=== PATIENT | female | born 1955 | race Caucasian/White ===

== ENCOUNTER → 2016-11-22 | Outpatient (CLI) | payer BC ==
--- NOTE | 2016-11-23 08:54 | PCVCIMAG ---
APPROVED REPORT Exam: Stress Echocardiogram Indication: CAD. Stent. TN Patient Location: Echo lab Stress Nurse: Leticia Singh RN Status: routine HR: 90 bpm Procedure The patient underwent an Exercise Stress Test using the Freddie Protocol. Blood pressure, heart rate, and EKG were monitored. An Echocardiogram was performed by wheel alignment technician in four stages in quad fashion. At peak stress, four selected images were obtained and placed side by side with resting images for comparison. Stress Test Details Stress Test: Exercise stress was performed using a manual protocol. HR Resting HR: 90 bpmMax Heart Rate (APMHR): 161 bpm Max HR Achieved: 148 bpmTarget HR (85% APMHR): 136 bpm % of APMHR: 91 HR response to stress: Normal HR response to stress BP Resting BP: 150/80 mmHg Max BP: 200/88 mmHg ECG Resting ECG: Sinus Rhythm Stress ECG: Sinus Rhythm ST Change: Normal Maximum ST Deviation: 0.5 mm Clinical Reason for Termination: Maximal effort, dyspnea Stress Symptoms: Dyspnea Exercise duration: 5 min sec Exercise capacity: 7.00 METs Overall Exercise Capacity for Age: Poor Angina Score: None Stress ECG Conclusion Clinical: Possibly iischemic. Significant dyspnea at low levels of activity ECG: Non-ischemic Barron Treadmill Score is 2.5 which is Moderate risk. Pre-Stress Echo The resting Echocardiogram showed abnormal left ventricular contractility with an estimated Ejection Fraction of about 45-50%. The resting Echocardiogram demonstrated wall motion abnormality in the basal inferior wall. Post-Stress Echo The stress Echocardiogram showed abnormal left ventricular contractility with an estimated Ejection Fraction of about 45-50%. The stress Echocardiogram demonstrated wall motion abnormality in the basal inferior wall. Small fixed inferobasal wall motion abnormality. Hypokinsis involving anteroapex Conclusion Clinical Response: Non-ischemic Exercise Capacity: Below Average Stress ECG Response: Equivocal Stress Echo Images: Ischemic No prior study available for comparison.
== END | disposition home or self-care (01) ==
LOC: PCVCIMAG 13:33
PROVIDERS: ATTEND Internal Medicine
DX: I25.10 Atherosclerotic heart disease of native coronary artery without angina pectoris (principal); I25.2 Old myocardial infarction; Z95.5 Presence of coronary angioplasty implant and graft
CPT/HCPCS: 93325; 93351

== ENCOUNTER → 2019-02-20 | Outpatient (CLI) | payer BC ==
[~2019-02-20] MED LIST: REGADENOSON 0.4 MG/5 ML DISP.SYRIN. IV ONE
--- NOTE | 2019-02-20 14:06 | PCVCIMAG ---
APPROVED REPORT Imaging Protocol: Rest Tc-99m/Stress Tc-99m 1 day Study performed: 02/20/2019 09:26:06 Indication: CAD, Ischemic Cardiomyopathy Patient Location: Out-Patient Stress Nurse: Arlene Yeager RN, Leticia Singh RN MI Tech:Thomas Rankin NMLUIS CARLOSB Ht: 5 ft 8 in Wt: 191 lbs BSA: 2.00 m2 HR: 69 bpm BP: 145/73 mmHg BMI: 29.0 Rhythm: Normal Sinus Rhythm, Septal Infarct Medical History Medical History: Age, Hypelipidemia, HTN, CAD, Smoker Medications: Norvasc, ASA, Zetia, Lisinopril, Metoprolol Allergies: No known drug allergies Previous Cardiac Procedures: PCI Pretest Chest Pain Characteristics: No chest pain Exercise History: Physically active Meds Held (24 hrs): Metoprolol Resting Data Rest SPECT myocardial perfusion imaging was performed in supine position 45 minutes following the intravenous injection of 11.2 mCi of Tc-99m Sestamibi. Time of rest injection: 854 Date: 02/20/2019 Administration Route: IV Administration Site: Left AC Pharmacologic Stress Pharmacologic stress test was performed by injecting Regadenoson 0.4 mg IV push over 10-15 seconds immediately followed by the intravenous injection of 34.2 mCi of Tc-99m Sestamibi. Time of stress injection: 1020 Date: 02/20/2019 Administration Route: IV Administration Site: Left AC Gated Stress SPECT was performed 45 minutes after stress injection. The images were gated to evaluate regional wall motion and calculate left ventricular ejection fraction. Stress Test Details Stress Test: Pharmacologic stress testing performed using 0.4 mg of regadenoson per 5 mL given IV over 10 seconds. Reason for pharmacologic stress test: Hip issues, Respiratory issues. HRMax Heart Rate (APMHR): 159 bpm Resting HR: 69 bpmTarget HR (85% APMHR): 135 bpm Max HR Achieved: 104 bpm % of APMHR: 65 Recovery HR: 93 bpm BP Resting BP: 145/73 mmHg Max BP: 142/86 mmHg Recovery BP: 120/64 mmHg ECG Resting ECG: Sinus Rhythm, nonspecific ST-T abnormalities Stress ECG: Sinus Rhythm, nonspecific ST-T abnormalities ST Change: None Maximum ST Deviation: 0 mm Arrhythmia: None Recovery ECG: Sinus Rhythm Recovery ST Change: None Recovery ST Deviation: 0 mm Recovery Arrhythmia: None Clinical Reason for Termination: Completed protocol Stress Symptoms: Dyspnea, Headache, Chest pain Exercise duration: min 55 sec Symptoms resolved with caffeine. Stress ECG Conclusion ECG: Non-ischemic Clinical: Non-ischemic Study Quality Study: Good Study Data Post stress, the left ventricular ejection was 61%.. SSS: 1 SRS: 1 SDS: 0 TID = 1.12. Perfusion No evidence of stress induced ischemia or prior myocardial infarction. Wall Motion Normal left ventricular size and function with no regional wall motion abnormalities. Nuclear Conclusion No evidence of stress induced ischemia or prior myocardial infarction. Normal left ventricular size and function with no regional wall motion abnormalities. Post stress, the left ventricular ejection was 61%. No prior study available for comparison. Interpreted by: Justo Bui MD Electronically Approved: 02/20/2019 13:23:10 <Conclusion> ECG: Non-ischemic Clinical: Non-ischemic
== END | disposition home or self-care (01) ==
LOC: PCVCIMAG 08:25
PROVIDERS: ATTEND Internal Medicine
DX: I25.10 Atherosclerotic heart disease of native coronary artery without angina pectoris (principal); I25.5 Ischemic cardiomyopathy
CPT/HCPCS: 78452; 93017; A9500; J2785